=== PATIENT | male | born 1955 | race Caucasian/White ===

== ENCOUNTER → 2023-03-12 | Outpatient (CLI) | payer BC ==
--- NOTE | 2023-03-12 17:34 | P.SLEEP ---
History of Present Illness DATE: 03/12/2023 CONSULTATION/NEW PATIENT EVALUATION HISTORY OF PRESENT ILLNESS/SLEEP-WAKE EVALUATION: 67 year old gentleman had been evaluated in the sleep center for obstructive sleep apnea hypopnea syndrome. Patient had a home sleep apnea test which was done in another institution in 01/03/2023, apnea-hypopnea index was 14.6. Home sleep apnea test may underestimate severity of obstructive sleep apnea. SLEEP SCHEDULE: Usually sleep schedule from 8 PM to 4 AM on weekdays and from 1011 PM to 78 AM on weekend. FALLING ASLEEP: No problems with falling asleep. DURING SLEEP: Patient wakes up from sleep 2 times with nocturia. No history of hypnogogical hallucinations, sleep paralysis, or cataplexy. DURING THE DAY/WAKE STATE: Patient denied any significant excessive daytime sleepiness. [place] sleepiness scale is 3. Patient trying not to do any naps. PAST MEDICAL HISTORY: Diabetes mellitus, hypertension, hyperlipidemia, vitamin D deficiency, tubular adenoma colon polyps removed during colonoscopy. PAST SURGICAL HISTORY: Basal cell carcinoma treated surgically. MEDICATIONS: Lisinopril 2.5 mg once a day, glipizide 5 mg twice a day, metformin 1000 mg twice a day. SOCIAL HISTORY: Negative for smoking, alcohol consumption occasional. FAMILY HISTORY: Hypertension, hyperlipidemia, cancer, creab . REVIEW OF SYSTEMS: Awakenings from sleep with nocturia. No fevers. No double vision. No recent chest pain. No shortness of breath. No abdominal pain. No bleeding episodes. No blood in urine. No seizure episodes. PHYSICAL EXAMINATION: GENERAL: A pleasant patient without any distress. VITAL SIGNS: BP 122/81 , HR 91 , RR 16 , weight 204.8 pounds, height 5 foot 5.5 inches, body mass index 33.4 . HEENT: PERRLA, EOMI. Evaluation of oropharynx showed tongue protrudes midline, low position of soft palate Mallampati 4 or. NECK: Supple. No JVD. Thyroid is not palpable. 19 inches in circumference. LUNGS: Clear to percussion and to auscultation. Good air exchange. No wheezing or rhonchi. HEART: S1, S2 regular. No murmurs, gallops or rubs. ABDOMEN: Soft and nontender. Bowel sounds are present. No organomegaly appreciated. EXTREMITIES: No clubbing or cyanosis. BAKERY SUPERVISOR: Awake, alert, and oriented x3. Cranial nerves 2 to 7 intact. There is no fasciculation or atrophy noted. No focal deficits observed. ASSESSMENT: 1. Awakenings from sleep, extremely low position of soft palate Mallampati 4, wide neck 19 inches in circumference. Patient trying not to take naps. Results of home sleep apnea test which was done in another institution showed apnea- hypopnea index 14.6. Obstructive sleep apnea hypopnea syndrome. 2. Diabetes mellitus. 3. History of essential hypertension. 4. Hyperlipidemia. 5 status post surgical treatment for basal cell carcinoma of the skin. 6 . Tubular adenoma colon polyps removed during colonoscopy. 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 PLAN: 1. Patient will be started on treatment with outer Pap and should use equipment every night for the whole night. 2. I will see patient in one months after patient will start to use CPAP equipment to evaluate clinical response on treatment, compliance with treatment and make an necessary adjustments related to mask fitting pressure and humidification 3. Preferable position during sleep on the side. 4. No driving if patient feels any sleepiness. Patient is aware of civil and criminal liability for unsafe driving. 5. Sleep hygiene with regular sleep time for at least 7.5-8 hours. 6. Watching and losing weight. Thank you very much for referring this patient for consultation. Sincerely, Kenny Jackson MD, PhD, FAASM. Diplomat of [place] [employer], Sleep Medicine Board by [place] [employer] [place] [employer] Manager Title of [facility] [place] Sleep Note - Sleep Note Sleep Note: Temperature: Pulse Rate: Respiratory Rate: Blood Pressure: SpO2: Height: Weight: BMI: Neck Circumference:
== END ==
LOC: 3 N SLEEP 15:49
PROVIDERS: ATTEND Internal Medicine
DX: G47.33 Obstructive sleep apnea (adult) (pediatric) (principal); E11.9 Type 2 diabetes mellitus without complications; I10 Essential (primary) hypertension; E78.5 Hyperlipidemia, unspecified; Z85.820 Personal history of malignant melanoma of skin; Z86.010 Personal history of colon polyps; Z79.899 Other long term (current) drug therapy; Z79.84 Long term (current) use of oral hypoglycemic drugs
CPT/HCPCS: 99202